=== PATIENT | male | born 1980 | race Caucasian/White ===

== ENCOUNTER 2019-03-08 13:05 | Emergency (ER) | payer BC ==
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
[2019-03-08] MEDS ORDERED: LORazepam 1 MG Tab PO ONE (15:40)
== END 2019-03-08 18:02 | disposition home or self-care (01) ==
LOC: JD.ED 13:05
DX: F41.1 Generalized anxiety disorder (principal); F32.9 Major depressive disorder, single episode, unspecified; F31.9 Bipolar disorder, unspecified; Z79.899 Other long term (current) drug therapy
CPT/HCPCS: 36415; 80053; 85007; 85027; 99284; A9270; 99283

== ENCOUNTER 2019-09-29 10:42 | Emergency (ER) | payer BC, MEDICAID ==
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
== END 2019-09-29 12:43 | disposition home or self-care (01) ==
LOC: JD.ED 10:42
DX: B34.9 Viral infection, unspecified (principal); F31.9 Bipolar disorder, unspecified; F41.9 Anxiety disorder, unspecified; Z79.899 Other long term (current) drug therapy
CPT/HCPCS: 87804; 99283; U0001